=== PATIENT | male | born 1975 | race Two or more races ===

== ENCOUNTER 2016-11-13 06:22 | Emergency (ER) | payer MEDICAID ==
[~2016-11-13] VITALS: Ht 185.4 cm; Wt 88.5 kg
--- NOTE | 2016-11-13 06:28 | NUR ---
PATEINT CAME INTO ER C/O RIGHT ANKLE REDNESS AND SWELLING THAT STARTED ABOUT 3 DAYS AGO. PT IS ALERT, ORIENTED X 4, NO RESP DISTRESS NOTED UPON ASSESSMENT.... MD AT BEDSIDE...
[2016-11-13] MEDS ORDERED: VANCOMYCIN IV 1,000 MG in IV DEXTROSE 5% 250 ML IV ONE (07:00)
[2016-11-13] MEDS ORDERED: IV NORMAL SALINE 1000 ML BAG IV ONE (07:00)
--- NOTE | 2016-11-13 07:00 | NUR ---
CARE ENDORSED TO DAYSHIFT NURSE.... PT REMAINS IN BED RESTING, NO RESP DISTRESS NOTED OR REPORTED UPON ASSESSMENT....
--- NOTE | 2016-11-13 07:05 | NUR ---
Marriage Therapist assumes care. Patient's future ex-spouse is at bedside . Per patient's future ex-spouse, the patient has been homeless & that they are now for 4 years. They have 4 children together. She brought the patient here because of pains and swelling of the right ankle/right foot. Per patient, the pain and swelling started 3 days ago & no known recent trauma to affected site. Patient is now waiting for the [facility] hospitalist to call our ER department back for possible admission or transfer to another hospital.
[2016-11-13] MEDS ORDERED: VANCOMYCIN IV 200 ML ONE (07:22)
[2016-11-13 07:25] LABS: BASOPHILS # (AUTO) 0.1 K/uL (0.0-8.0); BASOPHILS % (AUTO) 0.6 % (0.0-2.0); EOSINOPHILS # (AUTO) 0.1 K/uL (0.0-0.7); EOSINOPHILS % (AUTO) 0.8 % (0.0-7.0); HEMATOCRIT 44.5 % (40-50); HEMOGLOBIN 14.9 G/DL (14.0-18.0); LYMPHOCYTES % (AUTO) 5.4 % (20.5-51.5); MEAN CORPUSCULAR HEMOGLOBIN 30.8 UUG (27.0-31.0); MEAN CORPUSCULAR HGB CONC 33 g/dL (32.0-37.0); MEAN CORPUSCULAR VOLUME 92.3 FL (82.0-92.0); MONOCYTES # (AUTO) 1.2 K/UL (0.1-1.30); MONOCYTES % (AUTO) 6.5 % (0.0-11.0); NEUTROPHILS # (AUTO) 15.3 K/UL (1.8-8.9); NEUTROPHILS % (AUTO) 86.7 % (38.5-71.5); PLATELET COUNT (AUTO) 232 K/UL (150-450); RED BLOOD CELL COUNT(AUTO) 4.82 MIL/UL (4.7-6.1); RED CELL DISTRIBUTION WIDTH 12.2 % (11.5-14.5); WHITE BLOOD COUNT (AUTO) 17.7 K/UL (4.0-11.2)
[2016-11-13 07:30] LABS: CALCIUM 8.5 mg/dL (8.5-10.1); CREATININE 1.2 mg/dL (0.6-1.3); POTASSIUM 4.5 mmol/L (3.5-5.1)
[2016-11-13 07:46] LABS: ALBUMIN 3.6 g/dL (3.4-5.0); BILIRUBIN,DIRECT 0.1 mg/dL (0.0-0.2); BILIRUBIN,TOTAL 0.5 mg/dL (0.2-1.0); TOTAL PROTEIN, SERUM 7.8 g/dL (6.4-8.2)
[2016-11-13 08:34] LABS: BASOPHILS % (MANUAL) 1 % (0-2); LYMPHOCYTES % (MANUAL) 4 % (20-40); MONOCYTES % (MANUAL) 9 % (2-10)
[2016-11-13 08:35] LABS: BAND % (MANUAL) 10 % (0-10); NEUTROPHILS % (MANUAL) 76 % (42-75)
[2016-11-13 08:36] LABS: PLATELET ESTIMATE ADEQUATE
--- NOTE | 2016-11-13 09:11 | NUR ---
[facility]
--- NOTE | 2016-11-13 09:21 | NUR ---
Patient is resting comfortably in bed with eyes closed, pending transfer information still. ER staff Philippe is working with the insurance/[email or web address] time.
[2016-11-13] MEDS ORDERED: KETOROLAC TROMETHAMINE 30 MG INJ IVP ONE (10:30)
[2016-11-13] MEDS ORDERED: KETOROLAC TROMETHAMINE 30 MG INJ ONE (10:35)
--- NOTE | 2016-11-13 12:32 | NUR ---
Patient is eating lunch tray with good appetite, still pending [facility] [facility] arrangement for this patient. ER registration Philippe said that [facility] will us back for information.
--- NOTE | 2016-11-13 12:47 | NUR ---
[facility]. Patient notified re: updates. No questions or concerns verbalized by patient & family at the moment.
--- NOTE | 2016-11-13 14:34 | NUR ---
Per ER registration staff NUNO Paez will arrange their own ambulance ride.
--- NOTE | 2016-11-13 15:11 | NUR ---
Insurance-arranged BLS ambulance is here. Hands off report given to MICHAEL Sneed.
--- NOTE | 2016-11-13 15:14 | NUR ---
Patient left ER in stable condition.
== END 2016-11-13 15:14 | disposition short-term general hospital (02) ==
LOC: ER 06:30
DX: L03.115 Cellulitis of right lower limb (principal)
CPT/HCPCS: 36415; 73610; 73630; 83605; 84550; 85025; 87040; A4663; J1885; J3370; J7030

== ENCOUNTER 2016-12-12 05:03 | Emergency (ER) | payer MEDICAID ==
[~2016-12-12] VITALS: Ht 185.4 cm; Wt 88.5 kg
--- NOTE | 2016-12-12 06:02 | NUR ---
Pt to room. Pt requesting to have PICC line in right arm removed. Sts he was to follow up with his doctor after being discharged from another hospital and was unable. Pt seen by MD. PICC line removed. Bandaid applied to site by MD. No problems noted to site. Pt stable for discharge per MD. Pt given ACi. Pt verbalized understanding of dc instructions. Pt ambulated out of er with steady gait.
[2016-12-12 06:04] VITALS: BP 133/88
== END 2016-12-12 06:04 | disposition home or self-care (01) ==
LOC: ER 05:05
DX: Z45.2 Encounter for adjustment and management of vascular access device (principal)
CPT/HCPCS: A4663

== ENCOUNTER 2018-12-22 13:35 | Emergency (ER) | payer SELFPAY ==
[~2018-12-22] VITALS: Ht 185.4 cm; Wt 90.7 kg
--- NOTE | 2018-12-22 13:45 | NUR ---
LEX BACON AT BEDSIDE FOR MSE.
[2018-12-22] MEDS ORDERED: ONDANSETRON 4 MG/2 ML VIAL ONE (14:00)
[2018-12-22] MEDS ORDERED: ACETAMINOPHEN ES 500 MG TABLET PO ONE (14:00)
[2018-12-22] MEDS ORDERED: ONDANSETRON 4 MG/2 ML VIAL IV ONE (14:00)
[2018-12-22] MEDS ORDERED: IV NORMAL SALINE 1000 ML BAG IV ONE ×2 (14:00→15:15)
[2018-12-22] MEDS ORDERED: ACETAMINOPHEN ES 500 MG TABLET ONE (14:00)
--- NOTE | 2018-12-22 14:04 | NUR ---
PT TAKEN TO RADIOLOGY FOR CT SCAN.
[2018-12-22 14:08] LABS: BASOPHILS % (AUTO) 0.5 % (0.0-2.0); EOSINOPHILS % (AUTO) 0.1 % (0.0-7.0); HEMATOCRIT 50.1 % (36.7-47.1); HEMOGLOBIN 16.8 g/dL (12.5-16.3); LYMPHOCYTES # (AUTO) 0.7 K/uL (20.0-40.0); LYMPHOCYTES % (AUTO) 10.8 % (20.5-51.5); MEAN CORPUSCULAR HEMOGLOBIN 31.5 uug (23.8-33.4); MEAN CORPUSCULAR HGB CONC 34 g/dL (32.5-36.3); MEAN CORPUSCULAR VOLUME 94.1 fL (73.0-96.2); MONOCYTES # (AUTO) 0.6 K/uL (2.0-10.0); MONOCYTES % (AUTO) 9.4 % (0.0-11.0); NEUTROPHILS # (AUTO) 5.4 K/uL (1.8-8.9); NEUTROPHILS % (AUTO) 79.2 % (38.5-71.5); PLATELET COUNT (AUTO) 186 K/uL (152-348); RED BLOOD CELL COUNT(AUTO) 5.33 MIL/uL (4.06-5.63); WHITE BLOOD COUNT (AUTO) 6.8 K/uL (3.6-10.2)
[2018-12-22 14:14] LABS: CREATININE 1.1 mg/dL (0.6-1.3); POTASSIUM 4.2 mmol/L (3.5-5.1)
[2018-12-22 14:20] LABS: BILIRUBIN,DIRECT 0.1 mg/dL (0.0-0.2); BILIRUBIN,TOTAL 0.4 mg/dL (0.2-1.0); TOTAL PROTEIN, SERUM 7.7 g/dL (6.4-8.2)
--- NOTE | 2018-12-22 14:47 | NUR ---
LEX BACON AT BEDSIDE FOR PT UPDATE.
[2018-12-22] MEDS ORDERED: PENICILLIN G BENZATHINE 2.4 MMU/4 ML DISP.SYRIN IM ONE ×2 (15:00→15:07)
[2018-12-22 16:08] LABS: *BILIRUBIN,URIN NEGATIVE (NEGATIVE); *BLOOD, URINE NEGATIVE (NEGATIVE); *CLARITY,URINE CLEAR (CLEAR); *COLOR,URINE YELLOW (YELLOW); *KETONES,URINE NEGATIVE (NEGATIVE); LEUKOCYTE ESTERASE ,URINE NEGATIVE (NEGATIVE); NITRITE, URINE NEGATIVE (NEGATIVE); PH,URINE 6.5 (5.0-8.0); UGLUCOSE NEGATIVE (NEGATIVE)
[2018-12-22 16:20] LABS: MUCUS,URINE FEW /LPF (0-FEW); SQUAMOUS EPITHELIAL CELL,UR FEW /HPF (NONE SEEN); WBC,URINE 0-3 /HPF (0-3)
--- NOTE | 2018-12-22 16:23 | NUR ---
Patient discharged to home in stable conditon. Written and verbal after care instructions given. Patient verbalizes understanding of instructions. ALL BELONGINGS W/ PT. PT SELF-AMBULATED W/O DIFFICULTY. 18G IV ACCESS IN LAC REMOVED PRIOR TO D/C - INNER CANNULA INTACT.
[2018-12-22 16:24] VITALS: BP 121/72
== END 2018-12-22 16:25 | disposition home or self-care (01) ==
LOC: ER 13:35
DX: J02.0 Streptococcal pharyngitis (principal); E86.0 Dehydration; F15.10 Other stimulant abuse, uncomplicated
CPT/HCPCS: 36415; 70450; 71045; 80048; 80076; 81000; 81001; 83605; 83690; 85025; 85730; 86403; 87040 ×2; 87086; 96361; 96374; 96375; 99284; J2405; A4663; A9150; J7030